=== PATIENT | male | born 1940 ===

== ENCOUNTER 2020-12-24 19:59 | Inpatient (IN) | payer MEDICARE, OTHER ==
[~2020-12-24] VITALS: Ht 172.7 cm; Wt 80.5 kg
--- NOTE | 2020-12-24 21:05 | NUR ---
MD Green in room to do MSE.
--- NOTE | 2020-12-24 21:10 | NUR ---
Patient requesting food to eat and drink. OK per MD Green. Patient provided food and drink.
--- NOTE | 2020-12-24 21:10 | NUR ---
auto repair technician in room to draw blood.
--- NOTE | 2020-12-24 21:30 | NUR ---
library technical assistant in room to take x-ray.
[2020-12-24 21:38] LABS: HEMATOCRIT 31.4 % (36.7-47.1); MEAN CORPUSCULAR HEMOGLOBIN 29.6 uug (23.8-33.4); PLATELET COUNT (AUTO) 192 K/uL (152-348)
[2020-12-24 21:42] LABS: CREATININE 0.7 mg/dL (0.6-1.3); POTASSIUM 4.1 mmol/L (3.5-5.1)
--- NOTE | 2020-12-24 22:30 | NUR ---
Patient requested assistance with toileting. Patient assisted with toileting with commode in room.
[2020-12-24] MEDS ORDERED: HYDR-3972 PO (23:33)
[2020-12-24] MEDS ORDERED: ASPI81TA31 PO (23:33)
[2020-12-24] MEDS ORDERED: FINA5TAB11 PO (23:33)
[2020-12-24] MEDS ORDERED: PHEN100C4 PO (23:33)
[2020-12-24] MEDS ORDERED: MEMA10TA PO (23:33)
[2020-12-24] MEDS ORDERED: METF-442 PO (23:33)
[2020-12-24] MEDS ORDERED: PANT40TA49 PO (23:33)
[2020-12-24] MEDS ORDERED: TAMS-3 PO (23:33)
[2020-12-24] MEDS ORDERED: TEMA15CA5 PO (23:33)
[2020-12-24] MEDS ORDERED: MAGN400O6 PO (23:33)
[2020-12-24] MEDS ORDERED: RISP0.5T5 PO (23:33)
[2020-12-24] MEDS ORDERED: DONE10TA44 PO (23:33)
[2020-12-24] MEDS ORDERED: BISA10SU61 RC (23:33)
[2020-12-24] MEDS ORDERED: ACET-2154 PO (23:33)
[2020-12-24] MEDS ORDERED: ATOR10TA PO (23:33)
[2020-12-24] MEDS ORDERED: ONDA-104 PO (23:33)
[2020-12-24] MEDS ORDERED: SERT50TA PO (23:33)
[2020-12-24] MEDS ORDERED: NA P133E RC (23:33)
[2020-12-24 23:58] LABS: *BILIRUBIN,URIN NEGATIVE (NEGATIVE); *BLOOD, URINE NEGATIVE (NEGATIVE); *CLARITY,URINE CLEAR (CLEAR); *COLOR,URINE YELLOW (YELLOW); *KETONES,URINE NEGATIVE (NEGATIVE); LEUKOCYTE ESTERASE ,URINE NEGATIVE (NEGATIVE); NITRITE, URINE NEGATIVE (NEGATIVE); PH,URINE 6.5 (5.0-8.0); UGLUCOSE NEGATIVE (NEGATIVE)
[2020-12-25 00:16] LABS: BACTERIA,URINE NONE SEEN /HPF (NONE SEEN); RBC,URINE NONE SEEN /HPF (0-3); SQUAMOUS EPITHELIAL CELL,UR NONE SEEN /HPF (NONE SEEN); WBC,URINE 0-3 /HPF (0-3)
--- NOTE | 2020-12-25 00:27 | NUR ---
Panel call placed for [facility] paged. Pending call back.
--- NOTE | 2020-12-25 00:43 | NUR ---
Report given to MARCO A Campoverde.
[2020-12-25] MEDS ORDERED: ONDANSETRON 4 MG/2 ML VIAL IV PRN (00:45)
[2020-12-25] MEDS ORDERED: ACETAMINOPHEN 325 MG TABLET PO PRN (00:45)
[2020-12-25] MEDS ORDERED: Z GUARD REMEDY PASTE 57 GM TUBE TOP PRN (00:45)
[2020-12-25] MEDS ORDERED: HYDROCODONE/APAP 5-325MG TABLET PO PRN (00:45)
[2020-12-25] MEDS ORDERED: MAGNESIUM HYDROXIDE 30 ML LIQUID UDC PO PRN ×2 (00:45→09:15)
--- NOTE | 2020-12-25 01:17 | NUR ---
Nahomy Chaves states he is unable to perform rapid COVID test d/t machine malfunction. Troubleshooting of machines cannot be done until 6am per Nahomy Chaves.
--- NOTE | 2020-12-25 02:45 | NUR ---
Pt. admitted to telemetry room 324, under care of Dr. Man. Belongs List completed
--- NOTE | 2020-12-25 02:50 | NUR ---
RECEIVED PT FROM ER VIA WHEELCHAIR . UNDER THE CARE OF DR. GANDARA DX: COVID+. ADMISSION PROCESS AND CARE PLAN INITIATED. BELONGING LIST DONE. [facility] ASSESSMENT DONE. SEIZURE PRECAUTION. AIRBORN PRECAUTION/ CONTACT PRECAUTION FOR COVID. SAFETY AND COMFORT PROVIDED. WILL CONTINUE TO MONITOR.
[2020-12-25 03:28] VITALS: BP 122/65
[2020-12-25] MEDS: PANTOPRAZOLE SODIUM 40 MG TABLET.DR PO SCH (06:15)
--- NOTE | 2020-12-25 06:15 | NUR ---
PT ON COVID PRECAUTION. PT IN NO ACUTE DISTRESS. PT SLEPT INTERMITTENTLY. PT IV INTACT. PT ON SINUS RHYTHM ON 66. SEIZURE PRECAUTION NOTED. ALL NEEDS ARE MET. SAFETY AND COMFORT PROVIDED. WILL ENDORSE TO INCOMING NURSE FOR CONTINUITY OF CARE.
--- NOTE | 2020-12-25 08:00 | NUR ---
received report on pt, on covid-19 isolation precautions. pt on room air, no signs of distress, no reports of pain, pt saturating well on room air. Vital WNL. pt Korean speaking, ambulatory, urinal at bedside pt sometimes confused. IV on the left AC 20g. bed low and locked, HOB elevated, will continue with plan of care.
[2020-12-25] MEDS ORDERED: FLEET ENEMA 133 ML BOTTLE RC PRN (09:15)
[2020-12-25] MEDS ORDERED: BISACODYL 10 MG SUPP.RECT RC PRN (09:15)
[2020-12-25] MEDS ORDERED: TEMAZEPAM 15 MG CAPSULE PO PRN (09:15)
[2020-12-25] MEDS: ENOXAPARIN SODIUM 40 MG/0.4 ML DISP.SYRIN SQ SCH (09:41)
[2020-12-25] MEDS: PHENYTOIN SODIUM EXTENDED 100 MG CAPSULE.SA PO SCH ×2 (09:42→16:42)
[2020-12-25] MEDS ORDERED: IV NORMAL SALINE 500 ML IV ONE (09:45)
[2020-12-25 10:44] VITALS: BP 113/60
[2020-12-25 15:04] VITALS: BP 126/66
[2020-12-25] MEDS: METFORMIN HCL 500 MG TABLET PO SCH (16:42)
[2020-12-25] MEDS: MEMANTINE HCL 10 MG TABLET PO SCH (16:42)
--- NOTE | 2020-12-25 18:47 | NUR ---
pt resting in bed, call light within reach, all medications given as ordered. no complaints of pain at this time, all needs met this shift, on room air, no signs of distress. pt on Covid-19 isolation precautions, . bed low and locked, will endorse to oncoming nurse.
[2020-12-25] MEDS: TAMSULOSIN HCL 0.4 MG CAP.SR.24H PO SCH (21:02)
[2020-12-25] MEDS: ATORVASTATIN 10 MG TABLET PO SCH (21:02)
[2020-12-25] MEDS: risperiDONE 0.5 MG TABLET PO SCH (21:02)
[2020-12-25] MEDS: DONEPEZIL 10 MG TABLET PO SCH (21:02)
[2020-12-25 21:17] VITALS: BP 133/79
[2020-12-26] MEDS: PHENYTOIN SODIUM EXTENDED 100 MG CAPSULE.SA PO SCH ×3 (00:54→17:32)
--- NOTE | 2020-12-26 04:57 | NUR ---
Pt slept throughout the night. Denies pain or SOB. Denies chest pain. SR on monitor. Tolerated all medications given. Safety and comfort provided. No other issues or concerns at this time, will endorse to day shift.
[2020-12-26 05:52] LABS: HEMATOCRIT 33.2 % (36.7-47.1); MEAN CORPUSCULAR HEMOGLOBIN 29.2 uug (23.8-33.4); MEAN CORPUSCULAR VOLUME 83.4 fL (73.0-96.2); PLATELET COUNT (AUTO) 200 K/uL (152-348)
[2020-12-26 05:57] VITALS: BP 115/74
[2020-12-26 06:16] LABS: THYROID STIMULATING HORMONE 2.089 mIU/mL (0.358-3.740)
[2020-12-26 06:26] LABS: BILIRUBIN,DIRECT 0.1 mg/dL (0.0-0.2); BILIRUBIN,TOTAL 0.2 mg/dL (0.2-1.0); CREATININE 0.6 mg/dL (0.6-1.3); MAGNESIUM 2.1 mg/dL (1.8-2.4); PHOSPHOROUS 3.3 mg/dL (2.5-4.9); POTASSIUM 3.7 mmol/L (3.5-5.1); TOTAL PROTEIN, SERUM 6.8 g/dL (6.4-8.2)
[2020-12-26] MEDS: PANTOPRAZOLE SODIUM 40 MG TABLET.DR PO SCH (06:44)
--- NOTE | 2020-12-26 07:15 | NUR ---
received patient in bed awake, no complains of any SOB, pain or discomfort noted at this time. safety precautions in place. call light within reach. will continue to monitor.
[2020-12-26] MEDS ORDERED: PANTOPRAZOLE SODIUM 40 MG TABLET.DR PO SCH (09:00)
[2020-12-26] MEDS: FINASTERIDE 5 MG TABLET PO SCH (10:10)
[2020-12-26] MEDS: ASPIRIN 81 MG TAB.CHEW PO SCH (10:10)
[2020-12-26] MEDS: SERTRALINE HCL 50 MG TABLET PO SCH (10:11)
[2020-12-26] MEDS: METFORMIN HCL 500 MG TABLET PO SCH ×2 (10:13→17:32)
[2020-12-26] MEDS: MEMANTINE HCL 10 MG TABLET PO SCH ×2 (10:14→17:32)
[2020-12-26] MEDS: ENOXAPARIN SODIUM 40 MG/0.4 ML DISP.SYRIN SQ SCH (10:15)
[2020-12-26 11:04] VITALS: BP 131/85
[2020-12-26 15:45] VITALS: BP 110/67
--- NOTE | 2020-12-26 18:46 | NUR ---
patient in room in stable condition, HOB elevated. no complains of any SOB, pain or discomfort. call light within reach. will report to oncoming shift.
--- NOTE | 2020-12-26 19:45 | NUR ---
Received pt in bed, awake and verbally responsive, able to make needs known. Denies any pain or discomfort. No s/s of respiratory distress. NSR on tele at 73/min. Safety measures initiated, call light within reach, will continue to monitor.
[2020-12-26 20:00] VITALS: BP 124/66
[2020-12-26] MEDS: TAMSULOSIN HCL 0.4 MG CAP.SR.24H PO SCH (20:29)
[2020-12-26] MEDS: DONEPEZIL 10 MG TABLET PO SCH (20:29)
[2020-12-26] MEDS: risperiDONE 0.5 MG TABLET PO SCH (20:29)
[2020-12-26] MEDS: ATORVASTATIN 10 MG TABLET PO SCH (20:29)
[2020-12-27] VITALS: BP 131/78
[2020-12-27] MEDS: PHENYTOIN SODIUM EXTENDED 100 MG CAPSULE.SA PO SCH ×2 (01:23→08:15)
[2020-12-27] MEDS: PANTOPRAZOLE SODIUM 40 MG TABLET.DR PO SCH (06:05)
--- NOTE | 2020-12-27 06:24 | NUR ---
Slept intermittently through the night. No significant change in condition. Due medications administered and tolerated well. High risk for falls. Safety measures maintained at all times. PCR result is positive. Will endorse to incoming nurse.
[2020-12-27 08:00] VITALS: BP 126/76
--- NOTE | 2020-12-27 08:00 | NUR ---
RECEIVED PATIENT IN ROOM SITTING AT THE BEDSIDE TABLE, AOX3, NO SS OF RESPIRATORY DISTRESS OR PAIN. INDEPENDENT IN ALL AREAS OF ADLS. VERBALIZING TO STAFF THAT HE WANTS TO GO HOME. DISCHARGE PLANNING IN PLACE, SEE LOG SORTER NOTES
[2020-12-27] MEDS: METFORMIN HCL 500 MG TABLET PO SCH (08:13)
[2020-12-27] MEDS: ASPIRIN 81 MG TAB.CHEW PO SCH (08:13)
[2020-12-27] MEDS: MEMANTINE HCL 10 MG TABLET PO SCH (08:14)
[2020-12-27] MEDS: FINASTERIDE 5 MG TABLET PO SCH (08:14)
[2020-12-27] MEDS: SERTRALINE HCL 50 MG TABLET PO SCH (08:14)
[2020-12-27] MEDS: ENOXAPARIN SODIUM 40 MG/0.4 ML DISP.SYRIN SQ SCH (08:16)
--- NOTE | 2020-12-27 12:20 | NUR ---
DISCHARGED TO [facility] FOR CONTINUITY OF CARE
[2020-12-27 12:42] VITALS: BP 102/63
== END 2020-12-27 12:00 | DRG 177 ==
LOC: ER 19:59 → MEDSURG3 12-25 02:10 → TELE3 12-25 03:28 → MEDSURG3 12-27 09:00
PROVIDERS: ADMIT Internal Medicine; ATTEND Internal Medicine
DX: U07.1 COVID-19 (principal); G93.41 Metabolic encephalopathy; E87.1 Hypo-osmolality and hyponatremia; Z88.0 Allergy status to penicillin; E11.9 Type 2 diabetes mellitus without complications; E78.5 Hyperlipidemia, unspecified; D64.9 Anemia, unspecified; F32.9 Major depressive disorder, single episode, unspecified; E86.1 Hypovolemia; F41.9 Anxiety disorder, unspecified; G40.909 Epilepsy, unspecified, not intractable, without status epilepticus; K21.9 Gastro-esophageal reflux disease without esophagitis; N40.0 Benign prostatic hyperplasia without lower urinary tract symptoms; F29 Unspecified psychosis not due to a substance or known physiological condition; J44.9 Chronic obstructive pulmonary disease, unspecified; F03.90 Unspecified dementia, unspecified severity, without behavioral disturbance, psychotic disturbance, mood disturbance, and anxiety; R74.01 Elevation of levels of liver transaminase levels; Z79.84 Long term (current) use of oral hypoglycemic drugs
CPT/HCPCS: 36415; 71045; 83615; 83735; 83935; 84100; 84443; 85025; 85730; 86140; A4663; G0378; J1650; J7040; U0003